=== PATIENT | female | born 1985 | race Caucasian/White ===

== ENCOUNTER 2017-02-23 18:18 | Emergency (ER) | payer OTHER ==
[~2017-02-23] VITALS: Ht 170.2 cm; Wt 60.7 kg
[~2017-02-23 18:18] MED LIST: NAPROSYN500 MG PO; ULTRAM50 MG PO
[2017-02-23] MEDS ORDERED: VENTOLIN HFA18 GM IH (19:35)
[2017-02-23] MEDS ORDERED: NORCO 5/3251 TABLET PO ×2 (23:28→23:31)
[2017-02-23] MEDS ORDERED: MOTRIN600 MG PO (23:28)
[2017-02-23 23:49] VITALS: BP 120/68
== END 2017-02-23 23:53 | disposition home or self-care (01) ==
LOC: EME 18:18
DX: T14.8 Other injury of unspecified body region (principal); R51 Headache; M79.604 Pain in right leg; V43.52XA Car driver injured in collision with other type car in traffic accident, initial encounter; Y92.411 Interstate highway as the place of occurrence of the external cause; J45.909 Unspecified asthma, uncomplicated; F17.200 Nicotine dependence, unspecified, uncomplicated
CPT/HCPCS: 70450; 71020; 72125; 73564; 73590; 99281; 99284; J1885